=== PATIENT | female | born 1935 | race Caucasian/White ===

== ENCOUNTER 2016-06-25 01:37 | Emergency (ER) | payer MEDICARE ==
[2016-06-25] VITALS (7 sets, daily range): BP systolic 133–181; BP diastolic 67–86; PULSE 66–84; RESP 16–20; O2SAT 93–100
[~2016-06-25] VITALS: Ht 170.2 cm; Wt 84.1 kg
[~2016-06-25 01:37] MED LIST: ACET1TAB12 PO; ALBU2.5V4 INHALATION; ALBU8.5H2 INHALATION; ASCO100089 PO; CHOL400T PO; FLUT12AE10 IH; FLUT16SP NS; FUR20 PO; GABA-502 PO; HYDR25TA4 PO; OMEP20CA11 PO
--- NOTE | 2016-06-25 02:05 | ED.REPORT ---
HPI-General Illness Date of Service Jun 25, 2016 ED Provider: Enrique Concepcion MD This is an 81 year old female with a history of asthma, sciatica, and cervical cancer brought to the emergency department via EMS complaining of dizziness that began 24 hours ago. Associated symptoms include nausea. Dizziness is exacerbated by eye movements in all directions. Denies vomiting, headache, or change LOC. Her symptoms are normally improved with one meclizine. However, today symptoms did not seem to improve until she took two doses. Dizziness is improved upon arrival to the ED. Nursing Notes Stated Complaint: NAUSEA/VERTIGO Chief Complaint: General Complaint Nursing Notes Reviewed: Yes Allergies: Coded Allergies: erythromycin base (Verified Allergy, Unknown, 06/30/15) lincomycin (Verified Allergy, Unknown, 06/30/15) tetracycline (Verified Allergy, Unknown, dysphagia, 07/02/15) zafirlukast (Verified Allergy, Unknown, headaches, 07/02/15) Uncoded Allergies: TETANUS TOXOID (Allergy, Severe, anaphylaxis, 07/02/15) Scheduled Ascorbic Acid (Vitamin C) 1,000 Mg Tab.chew 1,000 MG PO DAILY Cholecalciferol (Vitamin D3) (Vitamin D3) 400 Unit Tablet 800 UNIT PO DAILY Fluticasone Propionate (Flovent HFA 220 mcg) 12 Gm Aer.w.adap 1 PUFF IH BID Fluticasone Propionate (Fluticasone Propionate Nasal) 16 Gm [place].susp 1 SPRAY NS BID Furosemide (Furosemide) 20 Mg Tab 20 MG PO DAILY Gabapentin (Gabapentin) 300 Mg Capsule 300 MG PO TID Hydrochlorothiazide (Hydrochlorothiazide) 25 Mg Tablet 12.5 MG PO DAILY Omeprazole (Omeprazole) 20 Mg Capsule.dr 20 MG PO DAILY Scheduled PRN Acetaminophen/Codeine 300-30mg (Tylenol/Codeine #3) 1 Each Tablet 1 TABLET PO Q6H PRN PRN Pain Albuterol HFA (Proair HFA) 8.5 Gm Hfa.aer.ad 2 PUFFS INHALATION Q4H PRN PRN For Shortness of Breath Albuterol Neb Soln (Albuterol Neb Soln) 2.5 Mg/3 Ml Vial.neb 2.5 MG INHALATION Q4H PRN PRN For Shortness of Breath General Time Seen by MD: 01:59 Chief Complaint Other Hx Obtained From: Patient Arrived By: Ambulance Sudden in Onset?: Yes Onset Occurred: 5 - 8 hours ago Symptom Duration: Since onset Severity: Current: No pain currently Pertinent Negative: Pt denies other symptoms Recent Healthcare: No recent doctor visit, No recent hospitalization Similar Sx Previous: No Past Medical History Past Medical History Notes: PCP: Dr. Harrison Past Medical History Hx of asthma. Distant hx of cervical cancer - in remission. L sided sciatica. 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 05/16/2016 Alcohol Use: "Social" Drug Use: Denies drug use Ambulatory Status Independent Review of Systems Full Review of Systems Constitutional: Denies: Chills, Fever Cardiovascular: Denies: Syncope GI: Denies: Nausea, Vomiting Neurologic: Reports: Dizziness, Denies: Change LOC, Confusion, Headache, Lightheaded Complete sys rev & neg: except as marked. Physical Exam Vital Signs Vital Signs Date Time Temp Pulse Resp B/P Pulse Ox O2 Delivery O2 Flow Rate FiO2 06/25/16 05:34 76 20 133/67 93 Room Air 06/25/16 04:15 66 18 94 Room Air 06/25/16 03:49 78 17 171/86 100 Room Air 06/25/16 02:29 84 16 165/83 93 Room Air 06/25/16 02:25 80 16 171/77 95 Room Air 06/25/16 02:20 69 16 181/68 95 Room Air 06/25/16 01:37 36.6 66 16 168/79 95 Room Air Initial VS: Reviewed, Vital signs normal General/Constitutional: Well-developed, Well-nourished ENT: Mucous membranes moist, Conjunctiva normal, No scleral icterus Neck: Supple, Non-tender, Full range of motion Respiratory: Breath sounds normal, Clear to auscultation, No respiratory distress Cardiovascular: Regular rate & rhythm, Heart sounds normal, Intact distal pulses Abdomen / GI: Soft, Non-tender, No guarding, No rebound, No distention Extremities: Vascular intact, Neuro intact, No swelling, No tenderness Skin: Warm, Dry, No cyanosis Neurologic: Alert, Oriented, Nonfocal Psychiatric: Mood/affect normal, Behavior normal, Normal thought content Head / Eyes: PERRL, EOMI Eye Movement: Positive: Nystagmus horizontal, Nystagmus present (while looking to the left ) Interpretation & Diagnostics Lab Results Interpretation Result Diagram: 06/25/16 0405 06/25/16 0405 Test 06/25/16 03:52 06/25/16 04:05 Hold Urine Received (Received) White Blood Count 10.6th/mm3 (3.8-10.1) Red Blood Count 4.79mil/mm3 (3.90-5.20) Hemoglobin 14.3g/dL (12.0-15.6) Hematocrit 43.1% (35.0-46.0) Mean Corpuscular Volume 90.0fL (81-100) Mean Corpuscular Hemoglobin 29.9pg (27.0-35.0) Mean Corpuscular Hemoglobin Concent 33.2% (32.0-37.0) Red Cell Distribution Width 13.6% (12.3-15.4) Platelet Count 144bil/L (150-400) Neutrophils (%) (Auto) 73.4% (40-74) Lymphocytes (%) (Auto) 19.0% (14-46) Monocytes (%) (Auto) 4.9% (4-12) Eosinophils (%) (Auto) 1.8% (0-5) Basophils (%) (Auto) 0.6% (0-3) Sodium Level 140mEq/L (134-144) Potassium Level 4.2mEq/L (3.5-5.2) Chloride Level 101mEq/L (97-108) Carbon Dioxide Level 25mmol/L (18-29) Blood Urea Nitrogen 10mg/dL (8-27) Creatinine 0.65mg/dL (0.57-1.00) Estimat Glomerular Filtration Rate 125mL/min (>59) Glucose Level 126mg/dL (60-99) Calcium Level 9.0mg/dL (8.5-10.1) Magnesium Level 2.0mg/dL (1.6-2.6) Total Bilirubin 0.2mg/dL (0.0-1.2) Aspartate Amino Transf (AST/SGOT) 16U/L (0-50) Alanine Aminotransferase (ALT/SGPT) 13U/L (0-32) Alkaline Phosphatase 71U/L (25-165) Total Protein 7.1g/dL (6.4-8.4) Albumin 4.0g/dL (3.4-5.0) Hold [place] Top Tube Received (Received) Lab values outside NL range: no clinical significance. ECG Interpretation ECG Interpretation: NSR at a rate of 65 Time: 02:52 Interpreted by: ED physician Normal ECG Interpretation: Normal rate, Normal sinus rhythm, No acute ischemic changes, Normal QRS, Normal axis, Normal intervals, No change from prior ECGs, Adequate tracing Re-Eval/Medical Decision Med Decision/Clinical Course 81-year-old female with a history of vertigo presents with vertigo that did not go away quite as fast as it usually does. She also has a little exacerbation of COPD which responded nicely to nebulizer treatment. Symptoms resolved fully in the emergency room. Counseled Regarding: Diagnosis, Need for follow-up, When/why to return to ED Discharge & Departure Primary Impression: Vertigo Disposition: Home Discharge Condition All VS Reviewed: Yes Condition: Stable Patient Instructions: Benign Paroxysmal Positional Vertigo (ED) Additional Instructions: Meclizine 25 mg by mouth twice a day as needed for vertigo, to be purchased over -the-counter. Do not drive until the vertigo is completely gone. See your regular doctor if you have persistent symptoms. Referrals: Katt Harrison MD (PCP) Scribe Attestation Portions of this note were transcribed by Jasmin Gilbert. I, Dr. Concepcion personally performed the history, physical exam and medical decision-making; I reviewed and confirmed the accuracy of the information in the transcribed note. Signed by: tuyet Kingston. 06/24/2016, 02:00. Enrique Concepcion MD Jun 25, 2016 02:05 JASMIN GILBERT Jun 25, 2016 02:14
[2016-06-25] MEDS ORDERED: Albuterol 2.5 mg/3 mL Inhalation Solution NEB ONE (03:55)
[2016-06-25 04:12] LABS: BASOPHILS % (AUTO) 0.6 % (0-3); EOSINOPHILS % (AUTO) 1.8 % (0-5); MONOCYTES % (AUTO) 4.9 % (4-12); Mean Corpuscular Hemoglobin 29.9 pg (27.0-35.0); NEUTROPHILS % (AUTO) 73.4 % (40-74); Platelet Count 144 bil/L (150-400)
== END 2016-06-25 05:05 | disposition home or self-care (01) ==
LOC: SED 01:37
DX: R42 Dizziness and giddiness (principal); R11.0 Nausea; J45.909 Unspecified asthma, uncomplicated; Z85.41 Personal history of malignant neoplasm of cervix uteri; Z87.39 Personal history of other diseases of the musculoskeletal system and connective tissue; Z86.718 Personal history of other venous thrombosis and embolism; Z87.898 Personal history of other specified conditions; Z88.1 Allergy status to other antibiotic agents; Z88.8 Allergy status to other drugs, medicaments and biological substances; Z88.7 Allergy status to serum and vaccine
CPT/HCPCS: 36415; 80053; 83735; 85025; 93005; 94664; 99284; J7613